=== PATIENT | female | born 1980 | race Caucasian/White ===

== ENCOUNTER 2021-07-17 14:24 | Emergency (ER) | payer MEDICAID, OTHER ==
[2021-07-17 16:09] LABS: ACETAMINOPHEN <2.0 ug/mL; BLOOD UREA NITROGEN,BUN 14 mg/dL (7.0-18.0); CARBON DIOXIDE,CO2 23.7 mmol/L (21.0-32.0); CHLORIDE,CL 102 mmol/L (98-107); GLUCOSE RANDOM 95 mg/dL (74-106); POTASSIUM,K 3.8 mmol/L (3.5-5.1); SODIUM,NA 139 mmol/L (136-145)
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
--- NOTE | 2021-07-17 17:51 | PCM.EKG ---
#1 Interpretation EKG Interpretation Comments: EKG done 07/17/21 1744 hrs. shows sinus rhythm heart rate 65 NE 140 [place] XVIII normal QRS except late transition R wave ST and T are within normal limits impression normal
[2021-07-17] MEDS ORDERED: Ondansetron 4 MG Tab.DIS PO ONE (20:38)
[2021-07-17] MEDS ORDERED: Acetaminophen 500 MG Tab PO ONE (20:45)
[2021-07-17] MEDS ORDERED: Ibuprofen 600 MG Tab PO ONE (20:45)
== END 2021-07-17 22:30 ==
LOC: MW.ED 14:24
DX: R45.851 Suicidal ideations (principal); Z88.5 Allergy status to narcotic agent; Z88.0 Allergy status to penicillin; Z88.2 Allergy status to sulfonamides; Z20.822 Contact with and (suspected) exposure to COVID-19
CPT/HCPCS: 36415; 80053; 80143; 80179; 80305; 80307; 81001; 81025; 83735; 84439; 84443; 85025; 87635; 93005; 99285; A9270; U0002

== ENCOUNTER 2023-03-16 12:24 | Emergency (ER) | payer MEDICAID ==
[2023-03-16] MEDS ORDERED: diphenhydrAMINE 50 MG/ML SDV IVPUSH ONE (12:25)
[2023-03-16] MEDS ORDERED: Sodium Chloride 0.9% 1,000 ML IV ONE (12:25)
[2023-03-16] MEDS ORDERED: Metoclopramide 10 MG/2 ML SDV IVPUSH ONE (12:25)
[2023-03-16] MEDS ORDERED: SUMAtriptan 6 MG/0.5 ML SDV SUBCUT ONE (12:27)
[2023-03-16] MEDS ORDERED: fentaNYL 50 MCG/ML SDV IVPUSH ONE (12:28)
[2023-03-16 14:16] LABS: EOSINOPHILS PERCENT AUTO 0.3 % (0.0-7.0); HEMATOCRIT 41.3 % (36.0-46.0); HEMOGLOBIN 14.4 g/dL (12.0-16.0); LYMPHOCYTES ABSOLUTE AUTO 0.7 K/uL (0.6-2.4); LYMPHOCYTES PERCENT AUTO 4.7 % (16.0-40.0); MEAN CORPUSCULAR HEMOGLOBIN 32.4 pg (27.0-32.0); MEAN CORPUSCULAR HGB CONC 34.9 g/dL (31.0-37.0); MEAN CORPUSCULAR VOLUME 92.8 fL (80.0-98.0); MONOCYTES ABSOLUTE AUTO 0.6 K/uL (0.0-0.8); MONOCYTES PERCENT AUTO 4.2 % (0.0-15.0); NEUTROPHILS ABSOLUTE AUTO 13.2 K/uL (1.4-5.7); NEUTROPHILS PERCENT AUTO 90.8 % (48.0-80.0); NRBC ABSOLUTE 0 K/uL; PLATELET COUNT,PLT 324 K/uL (150-400); RED BLOOD CELL COUNT 4.45 M/uL (4.30-5.90); WHITE BLOOD CELL COUNT,WBC 14.59 K/uL (4.0-11.0)
[2023-03-16 14:33] LABS: A/G RATIO 1.1 (0.9-1.6); BILIRUBIN TOTAL 0.4 mg/dL (0.2-1.0); CALCIUM 9.7 mg/dL (8.5-10.1); CARBON DIOXIDE,CO2 27.7 mmol/L (21.0-32.0); CREATININE 0.9 mg/dL (0.6-1.0); EST CRCL DRUG DOSING (CG) 77.01 mL/min; MAGNESIUM 1.3 mg/dL (1.8-2.4); PROTEIN TOTAL,TP 7.5 g/dL (6.4-8.2)
[2023-03-16] MEDS ORDERED: Magnesium Sulfate/Water 2 GM in Premix Bag 1 BAG IV ONE ×4 (14:35)
[2023-03-16] MEDS ORDERED: Magnesium Sulfate/Water 4 GM in Premix Bag 1 BAG IV ONE (14:54)
== END 2023-03-16 17:05 | disposition home or self-care (01) ==
LOC: MW.ED 12:24
DX: G43.909 Migraine, unspecified, not intractable, without status migrainosus (principal); Z88.5 Allergy status to narcotic agent; Z88.0 Allergy status to penicillin; Z88.2 Allergy status to sulfonamides; Z88.1 Allergy status to other antibiotic agents; Z20.822 Contact with and (suspected) exposure to COVID-19
CPT/HCPCS: 36415; 70450; 70496; 70498; 80053; 83735; 84703; 85025; 87635; 96361; 96365; 96366; 96372; 96375; 99284; J1200; J2765; J3030; J3475; J7030; U0002

== ENCOUNTER 2023-08-15 09:53 | Day surgery (SDC) | payer MEDICAID ==
[~2023-08-15 09:53] MED LIST: Lactated Ringers 1,000 ML IV SCH
[2023-08-15] MEDS ORDERED: Propofol 200 MG/20 ML SDV ONE ×2 (11:04→11:27)
[2023-08-15] MEDS ORDERED: dexmedeTOMIDine HCl 200 MCG/2 ML SDV ONE (11:31)
[2023-08-15] MEDS ORDERED: Lactated Ringers 1,000 ML IV SCH (11:45)
== END 2023-08-15 12:09 | disposition home or self-care (01) ==
LOC: MW.SDS 09:53
PROVIDERS: ATTEND Surgery
DX: K29.50 Unspecified chronic gastritis without bleeding (principal); K44.9 Diaphragmatic hernia without obstruction or gangrene; K21.9 Gastro-esophageal reflux disease without esophagitis; F41.9 Anxiety disorder, unspecified; F32.A Depression, unspecified; G43.909 Migraine, unspecified, not intractable, without status migrainosus; F43.10 Post-traumatic stress disorder, unspecified; Z86.16 Personal history of COVID-19; Z79.899 Other long term (current) drug therapy; Z98.890 Other specified postprocedural states; Z90.49 Acquired absence of other specified parts of digestive tract; Z88.5 Allergy status to narcotic agent; Z88.1 Allergy status to other antibiotic agents; Z88.0 Allergy status to penicillin; Z88.8 Allergy status to other drugs, medicaments and biological substances; Z88.2 Allergy status to sulfonamides
CPT/HCPCS: 43239; 81025; J2704; J7120; 00731; J3490

== ENCOUNTER 2023-10-03 08:41 | Day surgery (SDC) | payer MEDICAID ==
[~2023-10-03 08:41] MED LIST changes: +Albuterol 0.083% 2.5 MG/3 ML Neb Soln NEB PRN; +HYDROmorphone 1 MG/ML Syringe IVPUSH PRN; +Metoclopramide 10 MG/2 ML SDV IVPUSH PRN; +Morphine 2 MG/ML SYRINGE IVPUSH PRN; +Naloxone 0.4 MG/ML SDV IVPUSH PRN; +Ondansetron 4 MG/2 ML SDV IVPUSH PRN; +cefOXitin 2 GM in Sodium Chloride 0.9% 50 ML IV ONE; +droPERidol 5 MG/2 ML SDV IVPUSH PRN; +fentaNYL 50 MCG/ML SDV IVPUSH PRN
[2023-10-03] MEDS ORDERED: Rocuronium Bromide 50 MG/5 ML Syringe ONE (08:46)
[2023-10-03] MEDS ORDERED: fentaNYL 100 MCG/2 ML SDV ONE ×2 (08:47→10:09)
[2023-10-03] MEDS ORDERED: Propofol 200 MG/20 ML SDV ONE (08:47)
[2023-10-03] MEDS ORDERED: Bupivacaine 0.5% 30 ML SDV ONE (09:03)
[2023-10-03] MEDS ORDERED: Ketorolac 30 MG/ML SDV ONE (09:07)
[2023-10-03] MEDS ORDERED: Ondansetron 4 MG/2 ML SDV ONE (09:07)
[2023-10-03] MEDS ORDERED: Sugammadex Sodium 200 MG/2 ML VIAL ONE (09:07)
[2023-10-03] MEDS ORDERED: Dexamethasone 4 MG/ML 5 ML MDV ONE (09:07)
[2023-10-03] MEDS ORDERED: Bupivacaine 0.5%/EPINEPHrine 1:200,000 30 ML SDV ONE (09:11)
[2023-10-03] MEDS ORDERED: Bupivacaine 0.25% 30 ML SDV ONE (09:12)
[2023-10-03] MEDS ORDERED: Scopalamine 1mg/3day Transdermal Patch TOP ONE (09:30)
[2023-10-03] MEDS ORDERED: cefOXitin 1 GM Vial ONE (09:41)
[2023-10-03] MEDS ORDERED: Phenylephrine HCl 0.5 MG/5 ML AMP ONE (09:43)
[2023-10-03] MEDS ORDERED: Ketorolac 10 MG Tab PO PRN (11:02)
[2023-10-03] MEDS ORDERED: Lactated Ringers 1,000 ML IV SCH (11:15)
[2023-10-03] MEDS ORDERED: Acetaminophen/oxyCODONE 325-5 MG Tab PO ONE (11:55)
[2023-10-03] MEDS ORDERED: Acetaminophen/oxyCODONE 325-5 MG Tab ONE (11:57)
[2023-10-03] MEDS ORDERED: Scopalamine 1mg/3day Transdermal Patch ONE (12:17)
== END 2023-10-03 13:15 | disposition home or self-care (01) ==
LOC: MW.SDS 08:41
PROVIDERS: ATTEND Surgery
DX: K81.1 Chronic cholecystitis (principal); F41.9 Anxiety disorder, unspecified; F32.A Depression, unspecified; K21.9 Gastro-esophageal reflux disease without esophagitis; Z86.16 Personal history of COVID-19; K44.9 Diaphragmatic hernia without obstruction or gangrene; E66.9 Obesity, unspecified; Z68.29 Body mass index [BMI] 29.0-29.9, adult; Z87.891 Personal history of nicotine dependence; Z79.899 Other long term (current) drug therapy; Z88.5 Allergy status to narcotic agent; Z91.041 Radiographic dye allergy status; Z88.0 Allergy status to penicillin; Z88.2 Allergy status to sulfonamides
CPT/HCPCS: 47563; 64486; 64488; 81025; A9270; J0131; J0665; J0694; J1100; J1885; J2371; J2405; J2704; J3010; J3490; J7120; 00790

== ENCOUNTER 2024-02-08 08:34 | Emergency (ER) | payer MEDICAID ==
[2024-02-08] MEDS: Albuterol/Ipratropium 3.0-0.5 MG/3 ML Neb Soln NEB ONE (09:06)
[2024-02-08] MEDS: predniSONE 20 MG Tab PO ONE (09:06)
[2024-02-08 09:50] LABS: CORONAVIRUS COVID-19 NAA NEGATIVE (NEGATIVE); INFLUENZA A NAA NEGATIVE (NEGATIVE); INFLUENZA B NAA NEGATIVE (NEGATIVE); RESPIRATORY SYNCYTIAL VIR NAA NEGATIVE (NEGATIVE)
== END 2024-02-08 11:04 | disposition home or self-care (01) ==
LOC: EDBD → MW.ED 08:34
DX: J44.89 Other specified chronic obstructive pulmonary disease (principal); K21.9 Gastro-esophageal reflux disease without esophagitis; Z88.8 Allergy status to other drugs, medicaments and biological substances; Z88.5 Allergy status to narcotic agent; Z88.0 Allergy status to penicillin; Z88.2 Allergy status to sulfonamides; Z79.899 Other long term (current) drug therapy; Z79.51 Long term (current) use of inhaled steroids; Z86.19 Personal history of other infectious and parasitic diseases; Z87.891 Personal history of nicotine dependence
CPT/HCPCS: 0241U; 71046; 81025; 94640; 99285; A9270; 99283; J7620-GY

== ENCOUNTER 2024-02-12 13:40 | Emergency (ER) | payer MEDICAID ==
[2024-02-12] MEDS: Albuterol/Ipratropium 3.0-0.5 MG/3 ML Neb Soln NEB ONE ×2 (13:56→14:11)
[2024-02-12 13:57] LABS: BASOPHILS ABSOLUTE AUTO 0.04 K/uL (0.00-0.20); BASOPHILS PERCENT AUTO 0.2 % (0.0-1.0); EOSINOPHILS PERCENT AUTO 0.6 % (0.0-6.0); HEMATOCRIT 42.9 % (37.0-47.0); HEMOGLOBIN 15.5 g/dL (12.0-16.0); IMMATURE GRAN ABSOLUTE AUTO 0.08 K/uL (0.00-0.05); IMMATURE GRAN PERCENT AUTO 0.5 % (0.0-0.4); LYMPHOCYTES ABSOLUTE AUTO 2.02 K/uL (1.00-4.80); LYMPHOCYTES PERCENT AUTO 11.7 % (24.0-44.0); MEAN CORPUSCULAR HEMOGLOBIN 32.5 pg (28.0-32.0); MEAN CORPUSCULAR HGB CONC 36.1 g/dL (32.0-36.0); MEAN CORPUSCULAR VOLUME 89.9 fL (83.0-99.0); MEAN PLATELET VOLUME 8.6 fL (9.4-12.3); MONOCYTES ABSOLUTE AUTO 0.41 K/uL (0.00-0.80); MONOCYTES PERCENT AUTO 2.4 % (0.0-8.0); NEUTROPHILS ABSOLUTE AUTO 14.65 K/uL (1.80-7.70); NEUTROPHILS PERCENT AUTO 84.6 % (41.0-71.0); PLATELET COUNT,PLT 360 K/uL (150-400); RED BLOOD CELL COUNT 4.77 M/uL (4.10-5.30)
[2024-02-12] MEDS: methylPREDNISolone Sodium Succinate 125 MG/2 ML SDV IVPUSH ONE (14:05)
[2024-02-12] MEDS: Ondansetron 4 MG/2 ML SDV IVPUSH ONE (14:05)
[2024-02-12 14:07] LABS: CALCIUM 9.3 mg/dL (8.5-10.1); CARBON DIOXIDE,CO2 17.9 mmol/L (21.0-32.0); CREATININE 0.9 mg/dL (0.6-1.0); EST CRCL DRUG DOSING (CG) 58.49 mL/min; POTASSIUM,K 3.4 mmol/L (3.5-5.1)
[2024-02-12] MEDS: droPERidol 5 MG/2 ML SDV IVPUSH ONE (14:54)
== END 2024-02-12 16:27 | disposition home or self-care (01) ==
LOC: EDBD 13:40 → MW.ED 13:40
DX: J44.1 Chronic obstructive pulmonary disease with (acute) exacerbation (principal); F12.10 Cannabis abuse, uncomplicated; R11.2 Nausea with vomiting, unspecified; K21.9 Gastro-esophageal reflux disease without esophagitis; E66.9 Obesity, unspecified; Z79.899 Other long term (current) drug therapy; Z88.0 Allergy status to penicillin; Z88.2 Allergy status to sulfonamides; Z88.5 Allergy status to narcotic agent; Z88.6 Allergy status to analgesic agent; Z88.1 Allergy status to other antibiotic agents; Z88.8 Allergy status to other drugs, medicaments and biological substances
CPT/HCPCS: 36415; 80048; 85025; 94640; 96374; 96375; 99285; J1790; J2405; J2919; 99284; J7620-GY

== ENCOUNTER 2024-11-07 12:00 | Emergency (ER) | payer MEDICAID ==
[2024-11-07 12:34] LABS: BASOPHILS ABSOLUTE AUTO 0.06 K/uL (0.00-0.20); BASOPHILS PERCENT AUTO 0.4 % (0.0-1.0); EOSINOPHILS ABSOLUTE AUTO 0.81 K/uL (0.00-0.45); EOSINOPHILS PERCENT AUTO 5.8 % (0.0-6.0); HEMATOCRIT 38.6 % (37.0-47.0); HEMOGLOBIN 13.5 g/dL (12.0-16.0); IMMATURE GRAN ABSOLUTE AUTO 0.05 K/uL (0.00-0.05); IMMATURE GRAN PERCENT AUTO 0.4 % (0.0-0.4); LYMPHOCYTES ABSOLUTE AUTO 2.67 K/uL (1.00-4.80); MEAN CORPUSCULAR HEMOGLOBIN 32.4 pg (28.0-32.0); MEAN CORPUSCULAR VOLUME 92.6 fL (83.0-99.0); MEAN PLATELET VOLUME 8.9 fL (9.4-12.3); MONOCYTES ABSOLUTE AUTO 0.84 K/uL (0.00-0.80); NEUTROPHILS ABSOLUTE AUTO 9.59 K/uL (1.80-7.70); NEUTROPHILS PERCENT AUTO 68.4 % (41.0-71.0); PLATELET COUNT,PLT 295 K/uL (150-400); RED BLOOD CELL COUNT 4.17 M/uL (4.10-5.30); WHITE BLOOD CELL COUNT,WBC 14.02 K/uL (3.9-11.3)
[2024-11-07 13:27] LABS: A/G RATIO 1.1 (0.9-1.6); ALBUMIN 3.5 g/dL (3.4-5.0); BILIRUBIN TOTAL 0.3 mg/dL (0.2-1.0); CALCIUM 8.5 mg/dL (8.5-10.1); CREATININE 0.7 mg/dL (0.6-1.0); EST CRCL DRUG DOSING (CG) 74.43 mL/min; POTASSIUM,K 3.8 mmol/L (3.5-5.1); PROTEIN TOTAL,TP 6.7 g/dL (6.4-8.2)
[2024-11-07] MEDS: Ondansetron 4 MG Tab.DIS PO ONE (13:45)
[2024-11-07] MEDS: Acetaminophen/oxyCODONE 325-5 MG Tab PO ONE (13:45)
[2024-11-07 13:52] LABS: BILIRUBIN,URINE NEGATIVE (NEGATIVE); COLOR,URINE YELLOW; GLUCOSE,URINE NEGATIVE (NEGATIVE); KETONES,URINE NEGATIVE (NEGATIVE); LEUKOCYTE ESTERASE,URINE TRACE (NEGATIVE); NITRITE,URINE NEGATIVE (NEGATIVE); OCCULT BLOOD,URINE LARGE (NEGATIVE); PH,URINE 6.5 (5.0-8.0); PROTEIN,URINE NEGATIVE (NEGATIVE); UROBILINOGEN,URINE 0.2 EU/dL (<2.0)
[2024-11-07 13:54] LABS: APPEARANCE,URINE HAZY
[2024-11-07 14:18] LABS: BACTERIA,URINE FEW (NEGATIVE); EPITHELIAL CELLS,URINE FEW (NONE-FEW); RBC,URINE 25-30 (0-2/HPF)
== END 2024-11-07 16:18 | disposition home or self-care (01) ==
LOC: MW.ED 12:00
DX: O20.0 Threatened abortion (principal); Z3A.01 Less than 8 weeks gestation of pregnancy; Z90.49 Acquired absence of other specified parts of digestive tract; Z75.8 Other problems related to medical facilities and other health care; Z88.5 Allergy status to narcotic agent; Z88.6 Allergy status to analgesic agent; Z88.2 Allergy status to sulfonamides; Z88.0 Allergy status to penicillin; Z88.8 Allergy status to other drugs, medicaments and biological substances
CPT/HCPCS: 36415; 76817; 80053; 81001; 84702; 85025; 86850; 86900; 86901; 87086; 99284; A9270